=== PATIENT | male | born 1940 | race African-American/Black ===

== ENCOUNTER 2021-11-25 12:12 | Inpatient (IN) | payer MEDICARE, OTHER ==
[~2021-11-25] VITALS: Ht 182.9 cm; Wt 86.2 kg
[2021-11-25] MEDS ORDERED: SODIUM CHLORIDE 0.9% 1,000 ML IV ONE (12:45)
[2021-11-25 13:04] LABS: HEMATOCRIT. 34.5 % (42.0-52.0); HEMOGLOBIN. 11.8 g/dL (14.0-18.0); MEAN CORPUSCULAR HEMOGLOBIN 30.5 pg (28.0-32.0); MEAN CORPUSCULAR VOLUME 89.5 fL (80.0-94.0); MEAN PLATELET VOLUME 9.3 fl (7.4-10.4); PLATELET 115 x1000/uL (130-400); RED BLOOD CELL COUNT 3.86 mill/uL (4.7-6.1); RED CELL DISTRIBUTION WIDTH 16.3 % (11.6-14.6)
[2021-11-25 13:13] LABS: CHLORIDE 107 mEq/L (98-107)
[2021-11-25 13:34] LABS: PLATELET ESTIMATE SLIGHTLY DECREASED
[2021-11-25] MEDS ORDERED: ACETAMINOPHEN 325MG TABLET PO PRN ×2 (15:15)
[2021-11-25] MEDS ORDERED: POTASSIUM CHLORIDE INJ 40 MEQ in DEXT 5% WATER 250 ML IV ONE (15:15)
[2021-11-25] MEDS ORDERED: MAGNESIUM/ALUMINUM HYDROXIDE/SIMETHICONE 30ML UDC PO PRN (15:15)
[2021-11-25] MEDS ORDERED: HYDROCODONE/ACETAMINOPHEN 5/325MG TABLET PO PRN (15:15)
[2021-11-25] MEDS ORDERED: ONDANSETRON HCL 4MG/2ML INJ IV PRN (15:15)
[2021-11-25] MEDS ORDERED: CLONIDINE 0.1MG TABLET PO PRN (15:15)
[2021-11-25] MEDS ORDERED: NALOXONE HCL 0.4MG/ML VIAL IV PRN (15:45)
[2021-11-25 15:54] LABS: CREATINE KINASE 245 IU/L (39-308)
[2021-11-25] MEDS ORDERED: KCL 20MEQ/100ML X 2 FOR TOTAL KCL 40MEQ/200ML IV SCH (16:00)
[2021-11-25 16:26] LABS: CLARITY URINE TURBID (CLEAR); COLOR URINE BROWN (YELLOW); SPECIFIC GRAVITY URINE 1.021 (1.005-1.030)
[2021-11-25 17:17] VITALS: BP 147/78
[2021-11-25 19:32] LABS: INR 1.3; PROTHROMBIN TIME 13.5 sec (9.6-11.0)
[2021-11-25 20:00] VITALS: BP 135/74
[2021-11-25] MEDS: ENOXAPARIN 40MG/0.4ML SYR SUBCUT SCH (22:08)
[2021-11-25 22:22] VITALS: BP_SYST 103; BP_SYST 111; BP_SYST 140; BP_DIAS 61; BP_DIAS 65; BP_DIAS 90
[2021-11-25] MEDS: KCL 20MEQ/100ML X 2 FOR TOTAL KCL 40MEQ/200ML IV SCH (23:11)
[2021-11-26] VITALS: BP 138/69
[2021-11-26] MEDS ORDERED: HYDROXYZINE 25MG TABLET PO PRN (00:30)
[2021-11-26] MEDS: KCL 20MEQ/100ML X 2 FOR TOTAL KCL 40MEQ/200ML IV SCH (00:32)
[2021-11-26 04:00] VITALS: BP 139/72
[2021-11-26 06:22] LABS: HEMATOCRIT. 32.5 % (42.0-52.0); HEMOGLOBIN. 11.4 g/dL (14.0-18.0); MEAN CORPUSCULAR HEMOGLOBIN 31.1 pg (28.0-32.0); MEAN CORPUSCULAR VOLUME 89.1 fL (80.0-94.0); MEAN PLATELET VOLUME 10.4 fl (7.4-10.4); PLATELET 113 x1000/uL (130-400); RED BLOOD CELL COUNT 3.65 mill/uL (4.7-6.1); RED CELL DISTRIBUTION WIDTH 16.1 % (11.6-14.6)
[2021-11-26 07:00] LABS: HEPATITIS B SURFACE ANTIGEN NEGATIVE
[2021-11-26 07:05] LABS: CHLORIDE 111 mEq/L (98-107)
[2021-11-26 07:26] LABS: FERRITIN 3261 ng/mL (22-322)
[2021-11-26 07:27] LABS: HDL CHOLESTEROL 11 mg/dL (40-59); LDL CHOLESTEROL 358 mg/dL (5-100); PHOSPHORUS 1.8 mg/dL (2.5-4.9); T4 FREE 0.97 ng/dL (0.76-1.46); TOTAL IRON BINDING CAPACITY 224 ug/dL (250-450)
[2021-11-26 08:00] VITALS: BP 123/74
[2021-11-26 12:00] VITALS: BP 150/76
[2021-11-26 13:03] LABS: NUCLEATED RED BLOOD CELLS 1 /100 WBC
[2021-11-26 13:04] LABS: PLATELET ESTIMATE DECREASED
[2021-11-26 16:00] VITALS: BP 127/81
[2021-11-26] MEDS: ENOXAPARIN 40MG/0.4ML SYR SUBCUT SCH (16:29)
[2021-11-26 17:13] LABS: VITAMIN B12 SERUM 1072 pg/mL (211-911)
[2021-11-26 20:00] VITALS: BP 136/73
[2021-11-27 04:00] VITALS: BP 117/76
[2021-11-27 08:00] VITALS: BP 130/53
[2021-11-27] MEDS: FOLIC ACID 1MG TABLET PO SCH (08:40)
[2021-11-27 12:00] VITALS: BP 100/60
[2021-11-27 16:00] VITALS: BP 109/62
[2021-11-27] MEDS: ENOXAPARIN 40MG/0.4ML SYR SUBCUT SCH (16:08)
[2021-11-27] MEDS: DEXTROSE 5% WATER 1,000 ML IV SCH (16:21)
[2021-11-27 17:48] LABS: CLARITY URINE CLOUDY (CLEAR); COLOR URINE DARK YELLOW (YELLOW); KETONES URINE NEGATIVE (NEGATIVE); LEUKOCYTE ESTERASE URINE 1+ (NEGATIVE); NITRITE URINE POSITIVE (NEGATIVE); OCCULT BLOOD URINE 3+ (NEGATIVE); PH URINE 5.5 (4.5-8.0); PROTEIN URINE 1+ (NEGATIVE); SPECIFIC GRAVITY URINE 1.021 (1.005-1.030)
[2021-11-27 20:00] VITALS: BP 100/50
[2021-11-28 00:30] VITALS: BP 106/71
[2021-11-28 04:00] VITALS: BP 103/80
[2021-11-28 06:30] LABS: HEMATOCRIT. 34.3 % (42.0-52.0); HEMOGLOBIN. 12.1 g/dL (14.0-18.0); MEAN CORPUSCULAR HEMOGLOBIN 31.2 pg (28.0-32.0); MEAN CORPUSCULAR VOLUME 88.7 fL (80.0-94.0); MEAN PLATELET VOLUME 10.2 fl (7.4-10.4); PLATELET 83 x1000/uL (130-400); RED BLOOD CELL COUNT 3.87 mill/uL (4.7-6.1); RED CELL DISTRIBUTION WIDTH 16.6 % (11.6-14.6)
[2021-11-28 07:19] LABS: PHOSPHORUS 2.8 mg/dL (2.5-4.9)
[2021-11-28 08:00] VITALS: BP 93/54
[2021-11-28] MEDS: FOLIC ACID 1MG TABLET PO SCH (08:00)
[2021-11-28] MEDS ORDERED: CEFTRIAXONE 1 G PREMIX 50 ML IV SCH (09:45)
[2021-11-28] MEDS ORDERED: CEFTRIAXONE 1,000 MG in DEXTROSE 5% WATER 50 ML IV SCH (11:00)
[2021-11-28] MEDS ORDERED: SODIUM CHLORIDE 0.45% 250 ML IV SCH (11:00)
[2021-11-28] MEDS: CEFEPIME 1,000 MG in DEXTROSE 5% WATER 50 ML IV SCH ×2 (11:31→22:23)
[2021-11-28 12:00] VITALS: BP 91/56
[2021-11-28] MEDS: METRONIDAZOLE 500 MG PREMIX 100 ML IV SCH ×2 (12:16→23:44)
[2021-11-28 13:14] LABS: PLATELET ESTIMATE DECREASED
[2021-11-28 16:00] VITALS: BP 92/42
[2021-11-28] MEDS: DEXTROSE 5% WATER 1,000 ML IV SCH (16:01)
[2021-11-28] MEDS ORDERED: VANCOMYCIN 1,750 MG in DEXT 5% WATER 500 ML IV NR (18:00)
[2021-11-28 20:00] VITALS: BP 78/42
[2021-11-28] MEDS ORDERED: SODIUM CHLORIDE 0.45% 250 ML IV ONE (20:15)
[2021-11-28] MEDS: MIDODRINE HCL 5MG TABLET PO SCH (21:27)
[2021-11-29] VITALS (87 sets, daily range): BP systolic 61–152; BP diastolic 38–142
[2021-11-29] MEDS ORDERED: PHENYLEPHRINE 100 MG in DEXT 5% WATER 240 ML IV PRN (01:00)
[2021-11-29] MEDS: NOREPINEPHRINE 8 MG in DEXT 5% WATER 242 ML IV PRN ×2 (02:30→16:52)
[2021-11-29] MEDS: CEFEPIME 1,000 MG in DEXTROSE 5% WATER 50 ML IV SCH ×3 (06:29→21:26)
[2021-11-29] MEDS: METRONIDAZOLE 500 MG PREMIX 100 ML IV SCH ×3 (06:30→21:26)
[2021-11-29] MEDS: MIDODRINE HCL 5MG TABLET PO SCH ×3 (06:33→21:27)
[2021-11-29] MEDS ORDERED: LIDOCAINE HCL/PF 1% 10 MG/ML 5ML VIAL ONE (08:18)
[2021-11-29 08:22] LABS: HEMATOCRIT. 33.9 % (42.0-52.0); HEMOGLOBIN. 11.3 g/dL (14.0-18.0); MEAN CORPUSCULAR HEMOGLOBIN 30.1 pg (28.0-32.0); MEAN CORPUSCULAR VOLUME 90.6 fL (80.0-94.0); RED BLOOD CELL COUNT 3.74 mill/uL (4.7-6.1)
[2021-11-29 08:27] LABS: PHOSPHORUS 3.6 mg/dL (2.5-4.9)
[2021-11-29] MEDS: THIAMINE HCL 100MG TABLET PO SCH (08:46)
[2021-11-29] MEDS: FOLIC ACID 1MG TABLET PO SCH (08:46)
[2021-11-29] MEDS ORDERED: ENOXAPARIN 30MG/0.3ML SYR SUBCUT SCH (09:00)
[2021-11-29 09:12] LABS: NUCLEATED RED BLOOD CELLS 4 /100 WBC
[2021-11-29 09:13] LABS: PLATELET ESTIMATE DECREASED
[2021-11-29 09:16] LABS: MEAN PLATELET VOLUME 11.1 fl (7.4-10.4); PLATELET 82 x1000/uL (130-400)
[2021-11-29] MEDS ORDERED: VANCOMYCIN 1.25GM PMX (XELLIA) 250 ML IV NR (10:30)
[2021-11-29] MEDS: DEXTROSE 5% WATER 1,000 ML IV SCH (14:39)
[2021-11-29] MEDS ORDERED: SODIUM BICARBONATE 8.4% 1 MEQ/ML 50ML SYR IV NR (17:15)
[2021-11-29 17:19] LABS: BG BASE EXCESS -6.6 mmol/L (-2.0-2.0); BG CARBOXYHEMOGLOBIN 0.3 % (0.5-1.5); BG DEOXYHEMOGLOBIN 10.2 % (0.0-5.0); BG HCO3 ACT 16.3 mmol/L (22.0-26.0); BG OXYGEN SATURATION 89.8 % (92.0-98.5); BG OXYHEMOGLOBIN 89.5 % (94.0-97.0); BG PCO2 25.2 mmHg (35.0-45.0); BG PH 7.428 (7.350-7.450); BG PO2 64.3 mmHg (75.0-100.0); BG SAMPLE SITE RIGHT BRACHIAL; BG TOTAL HEMOGLOBIN 11.5 g/dL (12.0-18.0); BG VENT MODE ROOM AIR
[2021-11-29] MEDS: SODIUM BICARBONATE 100 MEQ in DEXTROSE 5% WATER 1,000 ML IV SCH (18:09)
[2021-11-29] MEDS ORDERED: SODIUM CHLORIDE 0.45% 250 ML IV ONE (20:15)
[2021-11-29 21:26] LABS: CREATINE KINASE 131 IU/L (39-308)
[2021-11-30] VITALS (91 sets, daily range): BP systolic 83–145; BP diastolic 36–119
[2021-11-30] MEDS: NOREPINEPHRINE 8 MG in DEXT 5% WATER 242 ML IV PRN ×2 (02:00→12:55)
[2021-11-30] MEDS ORDERED: VANCOMYCIN 1.25GM PMX (XELLIA) 250 ML IV SCH (06:00)
[2021-11-30 06:25] LABS: CHLORIDE 105 mEq/L (98-107); PHOSPHORUS 3.1 mg/dL (2.5-4.9)
[2021-11-30] MEDS: CEFEPIME 1,000 MG in DEXTROSE 5% WATER 50 ML IV SCH ×3 (06:32→21:36)
[2021-11-30] MEDS: SODIUM BICARBONATE 100 MEQ in DEXTROSE 5% WATER 1,000 ML IV SCH ×3 (06:32→18:49)
[2021-11-30] MEDS: METRONIDAZOLE 500 MG PREMIX 100 ML IV SCH ×3 (06:32→21:36)
[2021-11-30] MEDS: MIDODRINE HCL 5MG TABLET PO SCH ×3 (06:32→21:36)
[2021-11-30 08:28] LABS: BG BASE EXCESS 2.6 mmol/L (-2.0-2.0); BG CARBOXYHEMOGLOBIN 0.2 % (0.5-1.5); BG DEOXYHEMOGLOBIN 7.9 % (0.0-5.0); BG FRACTION INSPIRED OXYGEN 21; BG HCO3 ACT 27.3 mmol/L (22.0-26.0); BG METHEMOGLOBIN 0.1 % (0.0-1.5); BG OXYGEN SATURATION 92.1 % (92.0-98.5); BG OXYHEMOGLOBIN 91.8 % (94.0-97.0); BG PCO2 42.4 mmHg (35.0-45.0); BG PH 7.426 (7.350-7.450); BG PO2 68.9 mmHg (75.0-100.0); BG SAMPLE SITE RIGHT RADIAL; BG TOTAL HEMOGLOBIN 9.5 g/dL (12.0-18.0); BG VENT MODE ROOM AIR
[2021-11-30] MEDS: FOLIC ACID 1MG TABLET PO SCH (08:41)
[2021-11-30] MEDS: THIAMINE HCL 100MG TABLET PO SCH (08:41)
[2021-11-30 09:35] LABS: BASOPHILS % 0.3 % (0.0-2.0); HEMATOCRIT. 28.3 % (42.0-52.0); HEMOGLOBIN. 9.7 g/dL (14.0-18.0); LYMPHOCYTES % 10.1 % (20.0-50.0); MEAN CORPUSCULAR HEMOGLOBIN 30.3 pg (28.0-32.0); MEAN CORPUSCULAR VOLUME 88.1 fL (80.0-94.0); MEAN PLATELET VOLUME 10.3 fl (7.4-10.4); MONOCYTES % 4.3 % (2.0-8.0); NEUTROPHILS % 85.3 % (40.0-76.0); RED BLOOD CELL COUNT 3.21 mill/uL (4.7-6.1); RED CELL DISTRIBUTION WIDTH 16.8 % (11.6-14.6)
[2021-11-30] MEDS ORDERED: PANTOPRAZOLE SODIUM 40 MG/VIAL IV NR (10:00)
[2021-11-30 11:54] LABS: PLATELET 43 x1000/uL (130-400); PLATELET ESTIMATE MARKEDLY DECREASED
[2021-11-30 12:19] LABS: HEMATOCRIT 26.4 % (42.0-52.0); HEMOGLOBIN 9.2 g/dL (14.0-18.0)
[2021-11-30] MEDS: PANTOPRAZOLE SODIUM 40 MG/VIAL IV SCH (17:54)
[2021-11-30 19:16] LABS: HEMATOCRIT 24.7 % (42.0-52.0); HEMOGLOBIN 8.6 g/dL (14.0-18.0)
[2021-12-01] VITALS (93 sets, daily range): BP systolic 80–130; BP diastolic 41–92
[2021-12-01 00:58] LABS: HEMATOCRIT 22.8 % (42.0-52.0); HEMOGLOBIN 7.9 g/dL (14.0-18.0)
[2021-12-01] MEDS: NOREPINEPHRINE 8 MG in DEXT 5% WATER 242 ML IV PRN (04:04)
[2021-12-01 05:41] LABS: BASOPHILS % 0.1 % (0.0-2.0); EOSINOPHILS % 0.2 % (0.0-5.0); HEMATOCRIT. 22.6 % (42.0-52.0); HEMOGLOBIN. 7.9 g/dL (14.0-18.0); LYMPHOCYTES % 24.6 % (20.0-50.0); MEAN CORPUSCULAR HEMOGLOBIN 30.5 pg (28.0-32.0); MEAN CORPUSCULAR VOLUME 86.7 fL (80.0-94.0); MEAN PLATELET VOLUME 10.1 fl (7.4-10.4); NEUTROPHILS % 67.1 % (40.0-76.0); RED CELL DISTRIBUTION WIDTH 16.5 % (11.6-14.6)
[2021-12-01] MEDS: PANTOPRAZOLE SODIUM 40 MG/VIAL IV SCH ×2 (06:15→17:59)
[2021-12-01] MEDS: METRONIDAZOLE 500 MG PREMIX 100 ML IV SCH ×3 (06:16→22:10)
[2021-12-01] MEDS: CEFEPIME 1,000 MG in DEXTROSE 5% WATER 50 ML IV SCH (06:16)
[2021-12-01] MEDS: MIDODRINE HCL 5MG TABLET PO SCH ×3 (06:16→22:10)
[2021-12-01 06:26] LABS: PHOSPHORUS 2.2 mg/dL (2.5-4.9)
[2021-12-01 07:08] LABS: PLATELET 24 x1000/uL (130-400)
[2021-12-01] MEDS: FOLIC ACID 1MG TABLET PO SCH (08:10)
[2021-12-01] MEDS: THIAMINE HCL 100MG TABLET PO SCH (08:11)
[2021-12-01] MEDS: SODIUM CHLORIDE 0.45% 1,000 ML IV SCH (10:59)
[2021-12-01] MEDS ORDERED: POTASSIUM PHOS,M-BASIC-D-BASIC 30 MMOL in DEXT 5% WATER 500 ML IV NR (12:00)
[2021-12-01 12:28] LABS: HEMATOCRIT 22.3 % (42.0-52.0); HEMOGLOBIN 7.7 g/dL (14.0-18.0)
[2021-12-02] VITALS (106 sets, daily range): BP systolic 34–134; BP diastolic 20–97
[2021-12-02] MEDS: SODIUM CHLORIDE 0.45% 1,000 ML IV SCH ×2 (00:03→12:18)
[2021-12-02 00:54] LABS: HEMATOCRIT 21.2 % (42.0-52.0); HEMOGLOBIN 7.3 g/dL (14.0-18.0)
[2021-12-02] MEDS: IPRATROPIUM/ALBUTEROL 0.5-3(2.5)MG/3ML NEB HHN SCH ×6 (02:17→23:44)
[2021-12-02] MEDS: PANTOPRAZOLE SODIUM 40 MG/VIAL IV SCH ×2 (05:11→17:24)
[2021-12-02] MEDS: MIDODRINE HCL 5MG TABLET PO SCH ×3 (05:11→21:26)
[2021-12-02] MEDS: METRONIDAZOLE 500 MG PREMIX 100 ML IV SCH ×2 (05:12→14:09)
[2021-12-02 05:48] LABS: HEMATOCRIT. 23.7 % (42.0-52.0); HEMOGLOBIN. 8.3 g/dL (14.0-18.0); MEAN CORPUSCULAR HEMOGLOBIN 30.4 pg (28.0-32.0); MEAN CORPUSCULAR VOLUME 86.9 fL (80.0-94.0); MEAN PLATELET VOLUME 10.2 fl (7.4-10.4); RED BLOOD CELL COUNT 2.72 mill/uL (4.7-6.1); RED CELL DISTRIBUTION WIDTH 16.3 % (11.6-14.6)
[2021-12-02 06:12] LABS: PLATELET 14 x1000/uL (130-400)
[2021-12-02 06:17] LABS: PHOSPHORUS 4.2 mg/dL (2.5-4.9)
[2021-12-02 06:57] LABS: NUCLEATED RED BLOOD CELLS 3 /100 WBC; PLATELET ESTIMATE MARKEDLY DECREASED
[2021-12-02] MEDS: THIAMINE HCL 100MG TABLET PO SCH (08:14)
[2021-12-02] MEDS: FOLIC ACID 1MG TABLET PO SCH (08:14)
[2021-12-02] MEDS ORDERED: POTASSIUM CHLORIDE INJ 40 MEQ in DEXT 5% WATER 500 ML IV ONE (08:30)
[2021-12-02] MEDS ORDERED: CEFEPIME 1,000 MG in DEXTROSE 5% WATER 50 ML IV SCH (09:00)
[2021-12-02] MEDS: KCL 20MEQ/100ML X 2 FOR TOTAL KCL 40MEQ/200ML IV SCH ×2 (09:39→12:15)
[2021-12-02] MEDS ORDERED: IPRATROPIUM/ALBUTEROL 0.5-3(2.5)MG/3ML NEB HHN PRN (11:15)
[2021-12-02 12:26] LABS: BG BASE EXCESS 1.8 mmol/L (-2.0-2.0); BG CARBOXYHEMOGLOBIN 0.3 % (0.5-1.5); BG DEOXYHEMOGLOBIN 7.4 % (0.0-5.0); BG FRACTION INSPIRED OXYGEN 21; BG OXYGEN SATURATION 92.6 % (92.0-98.5); BG OXYHEMOGLOBIN 92.3 % (94.0-97.0); BG PCO2 28.9 mmHg (35.0-45.0); BG PH 7.537 (7.350-7.450); BG PO2 63.9 mmHg (75.0-100.0); BG SAMPLE SITE RIGHT RADIAL; BG TOTAL HEMOGLOBIN 9.3 g/dL (12.0-18.0); BG VENT MODE ROOM AIR
[2021-12-02] MEDS: MEROPENEM 500 MG in SODIUM CHLORIDE 0.9% 50 ML IV SCH (17:24)
[2021-12-03] VITALS (90 sets, daily range): BP systolic 82–142; BP diastolic 44–88
[2021-12-03] MEDS: SODIUM CHLORIDE 0.45% 1,000 ML IV SCH ×2 (03:20→16:09)
[2021-12-03] MEDS: IPRATROPIUM/ALBUTEROL 0.5-3(2.5)MG/3ML NEB HHN SCH ×4 (04:02→21:56)
[2021-12-03] MEDS: PANTOPRAZOLE SODIUM 40 MG/VIAL IV SCH ×2 (05:52→16:16)
[2021-12-03] MEDS: MIDODRINE HCL 5MG TABLET PO SCH ×3 (05:52→21:49)
[2021-12-03 07:24] LABS: HEMOGLOBIN. 7.2 g/dL (14.0-18.0); MEAN CORPUSCULAR HEMOGLOBIN 30.3 pg (28.0-32.0); MEAN PLATELET VOLUME 8.4 fl (7.4-10.4); RED BLOOD CELL COUNT 2.39 mill/uL (4.7-6.1); RED CELL DISTRIBUTION WIDTH 16.8 % (11.6-14.6)
[2021-12-03 07:33] LABS: CHLORIDE 109 mEq/L (98-107)
[2021-12-03] MEDS: MEROPENEM 500 MG in SODIUM CHLORIDE 0.9% 50 ML IV SCH ×2 (08:00→20:45)
[2021-12-03] MEDS: FOLIC ACID 1MG TABLET PO SCH (08:00)
[2021-12-03] MEDS: THIAMINE HCL 100MG TABLET PO SCH (08:00)
[2021-12-03 08:05] LABS: HEMATOCRIT. 20.6 % (42.0-52.0); PLATELET 23 x1000/uL (130-400)
[2021-12-03 08:23] LABS: BG BASE EXCESS 2.1 mmol/L (-2.0-2.0); BG CARBOXYHEMOGLOBIN 0.5 % (0.5-1.5); BG DEOXYHEMOGLOBIN 1.1 % (0.0-5.0); BG FRACTION INSPIRED OXYGEN 32; BG HCO3 ACT 25.8 mmol/L (22.0-26.0); BG METHEMOGLOBIN 0.3 % (0.0-1.5); BG OXYGEN SATURATION 98.9 % (92.0-98.5); BG OXYHEMOGLOBIN 98.1 % (94.0-97.0); BG PCO2 35.8 mmHg (35.0-45.0); BG PH 7.476 (7.350-7.450); BG PO2 153.2 mmHg (75.0-100.0); BG SAMPLE SITE RIGHT RADIAL; BG VENT MODE NASAL CANNULA
[2021-12-03 08:44] LABS: NUCLEATED RED BLOOD CELLS 3 /100 WBC; PLATELET ESTIMATE MARKEDLY DECREASED
[2021-12-04] VITALS (100 sets, daily range): BP systolic 80–140; BP diastolic 11–95
[2021-12-04] MEDS: SODIUM CHLORIDE 0.45% 1,000 ML IV SCH ×3 (04:26→17:19)
[2021-12-04] MEDS: PANTOPRAZOLE SODIUM 40 MG/VIAL IV SCH ×2 (05:32→17:19)
[2021-12-04] MEDS: MIDODRINE HCL 5MG TABLET PO SCH ×3 (05:33→21:04)
[2021-12-04 05:39] LABS: BASOPHILS % 0.4 % (0.0-2.0); HEMOGLOBIN. 7.2 g/dL (14.0-18.0); LYMPHOCYTES % 9.5 % (20.0-50.0); MEAN CORPUSCULAR HEMOGLOBIN 29.9 pg (28.0-32.0); MEAN CORPUSCULAR VOLUME 86.6 fL (80.0-94.0); MEAN PLATELET VOLUME 9.3 fl (7.4-10.4); MONOCYTES % 6.7 % (2.0-8.0); NEUTROPHILS % 82.4 % (40.0-76.0); RED BLOOD CELL COUNT 2.42 mill/uL (4.7-6.1); RED CELL DISTRIBUTION WIDTH 16.5 % (11.6-14.6)
[2021-12-04 05:45] LABS: HEMATOCRIT. 20.9 % (42.0-52.0)
[2021-12-04 05:49] LABS: CHLORIDE 111 mEq/L (98-107)
[2021-12-04 05:52] LABS: PLATELET 21 x1000/uL (130-400)
[2021-12-04 05:54] LABS: CREATINE KINASE 88 IU/L (39-308); PHOSPHORUS 3.9 mg/dL (2.5-4.9)
[2021-12-04] MEDS: IPRATROPIUM/ALBUTEROL 0.5-3(2.5)MG/3ML NEB HHN SCH ×5 (06:00→20:47)
[2021-12-04 06:11] LABS: INR 1.9; PROTHROMBIN TIME 19.1 sec (9.6-11.0)
[2021-12-04] MEDS: FOLIC ACID 1MG TABLET PO SCH (08:07)
[2021-12-04] MEDS: THIAMINE HCL 100MG TABLET PO SCH (08:07)
[2021-12-04] MEDS: MEROPENEM 500 MG in SODIUM CHLORIDE 0.9% 50 ML IV SCH ×2 (08:07→21:03)
[2021-12-04] MEDS ORDERED: POTASSIUM CHLORIDE 20MEQ TABLET SR PO NR (11:00)
[2021-12-04 11:33] LABS: PARTIAL THROMBOPLASTIN TIME 54.1 sec (23.4-31.0)
[2021-12-04] MEDS ORDERED: MIDODRINE HCL 5MG TABLET PO SCH (12:00)
[2021-12-04 17:13] LABS: HEMATOCRIT 23.9 % (42.0-52.0); HEMOGLOBIN 8.3 g/dL (14.0-18.0)
[2021-12-04 17:24] LABS: INR 1.7; PROTHROMBIN TIME 17.3 sec (9.6-11.0)
[2021-12-05] VITALS (56 sets, daily range): BP systolic 96–158; BP diastolic 30–96
[2021-12-05] MEDS: IPRATROPIUM/ALBUTEROL 0.5-3(2.5)MG/3ML NEB HHN SCH ×6 (01:34→20:31)
[2021-12-05] MEDS: SODIUM CHLORIDE 0.45% 1,000 ML IV SCH ×2 (03:24→08:18)
[2021-12-05] MEDS: PANTOPRAZOLE SODIUM 40 MG/VIAL IV SCH ×2 (05:39→17:03)
[2021-12-05] MEDS: MIDODRINE HCL 5MG TABLET PO SCH ×3 (06:00→22:28)
[2021-12-05 06:45] LABS: BASOPHILS % 0.2 % (0.0-2.0); EOSINOPHILS % 0.9 % (0.0-5.0); HEMATOCRIT. 23.9 % (42.0-52.0); HEMOGLOBIN. 8.3 g/dL (14.0-18.0); LYMPHOCYTES % 14.1 % (20.0-50.0); MEAN CORPUSCULAR HEMOGLOBIN 30.3 pg (28.0-32.0); MEAN CORPUSCULAR VOLUME 87.1 fL (80.0-94.0); MEAN PLATELET VOLUME 9.5 fl (7.4-10.4); MONOCYTES % 11.7 % (2.0-8.0); NEUTROPHILS % 73.1 % (40.0-76.0); PLATELET 52 x1000/uL (130-400); RED BLOOD CELL COUNT 2.75 mill/uL (4.7-6.1); RED CELL DISTRIBUTION WIDTH 16.6 % (11.6-14.6)
[2021-12-05 06:56] LABS: INR 1.6; PARTIAL THROMBOPLASTIN TIME 41.4 sec (23.4-31.0); PROTHROMBIN TIME 16.1 sec (9.6-11.0)
[2021-12-05 07:01] LABS: CHLORIDE 113 mEq/L (98-107)
[2021-12-05 07:10] LABS: PHOSPHORUS 3.5 mg/dL (2.5-4.9)
[2021-12-05] MEDS: MEROPENEM 500 MG in SODIUM CHLORIDE 0.9% 50 ML IV SCH ×2 (08:18→21:38)
[2021-12-05] MEDS ORDERED: MIDODRINE HCL 5MG TABLET PO NR (10:15)
[2021-12-05] MEDS ORDERED: IOHEXOL-300 50 ML BOTTLE IV ONE (10:38)
[2021-12-05] MEDS ORDERED: LIDOCAINE HCL 1% 10 MG/ML 10ML VIAL ONE (10:38)
[2021-12-05] MEDS ORDERED: KCL 20MEQ/100ML PREMIX 100 ML IV NR (14:30)
[2021-12-05] MEDS: POTASSIUM CHLORIDE INJ 30 MEQ in DEXT 5%/0.2% NACL 1,000 ML IV SCH (15:31)
[2021-12-06] VITALS (14 sets, daily range): BP systolic 100–130; BP diastolic 53–87
[2021-12-06] MEDS ORDERED: KCL 20MEQ/100ML PREMIX 100 ML IV NR (00:15)
[2021-12-06] MEDS: POTASSIUM CHLORIDE INJ 30 MEQ in DEXT 5%/0.2% NACL 1,000 ML IV SCH ×3 (00:18→18:10)
[2021-12-06] MEDS: METOCLOPRAMIDE HCL 10MG/2ML VIAL IV SCH ×4 (00:20→18:00)
[2021-12-06] MEDS: IPRATROPIUM/ALBUTEROL 0.5-3(2.5)MG/3ML NEB HHN SCH ×6 (00:39→21:22)
[2021-12-06] MEDS: PANTOPRAZOLE SODIUM 40 MG/VIAL IV SCH ×2 (06:33→18:10)
[2021-12-06] MEDS: MIDODRINE HCL 5MG TABLET PO SCH ×3 (06:34→21:58)
[2021-12-06 07:29] LABS: HEMOGLOBIN. 8.3 g/dL (14.0-18.0); MEAN CORPUSCULAR HEMOGLOBIN 30.5 pg (28.0-32.0); MEAN CORPUSCULAR VOLUME 87.6 fL (80.0-94.0); MEAN PLATELET VOLUME 10.2 fl (7.4-10.4); RED BLOOD CELL COUNT 2.73 mill/uL (4.7-6.1); RED CELL DISTRIBUTION WIDTH 17.1 % (11.6-14.6)
[2021-12-06 07:36] LABS: INR 1.4; PARTIAL THROMBOPLASTIN TIME 38.2 sec (23.4-31.0); PROTHROMBIN TIME 15.1 sec (9.6-11.0)
[2021-12-06 07:52] LABS: CHLORIDE 113 mEq/L (98-107)
[2021-12-06 08:04] LABS: PHOSPHORUS 2.9 mg/dL (2.5-4.9)
[2021-12-06] MEDS: MEROPENEM 500 MG in SODIUM CHLORIDE 0.9% 50 ML IV SCH ×2 (09:30→21:17)
[2021-12-06 10:47] LABS: NUCLEATED RED BLOOD CELLS 1 /100 WBC; PLATELET ESTIMATE MARKEDLY DECREASED
[2021-12-06 10:49] LABS: PLATELET 46 x1000/uL (130-400)
[2021-12-06 15:58] LABS: BG BASE EXCESS -1.5 mmol/L (-2.0-2.0); BG CARBOXYHEMOGLOBIN 0.3 % (0.5-1.5); BG DEOXYHEMOGLOBIN 12.9 % (0.0-5.0); BG HCO3 ACT 21.5 mmol/L (22.0-26.0); BG METHEMOGLOBIN 0.3 % (0.0-1.5); BG OXYHEMOGLOBIN 86.5 % (94.0-97.0); BG PCO2 30.3 mmHg (35.0-45.0); BG PH 7.469 (7.350-7.450); BG PO2 53.1 mmHg (75.0-100.0); BG SAMPLE SITE RIGHT RADIAL; BG TOTAL HEMOGLOBIN 10.5 g/dL (12.0-18.0); BG VENT MODE NASAL CANNULA
[2021-12-07] VITALS (21 sets, daily range): BP systolic 97–149; BP diastolic 47–83
[2021-12-07] MEDS: METOCLOPRAMIDE HCL 10MG/2ML VIAL IV SCH ×4 (00:08→18:18)
[2021-12-07] MEDS: POTASSIUM CHLORIDE INJ 30 MEQ in DEXT 5%/0.2% NACL 1,000 ML IV SCH ×3 (00:09→15:48)
[2021-12-07] MEDS: IPRATROPIUM/ALBUTEROL 0.5-3(2.5)MG/3ML NEB HHN SCH ×5 (00:30→20:25)
[2021-12-07] MEDS: PANTOPRAZOLE SODIUM 40 MG/VIAL IV SCH ×2 (05:35→18:19)
[2021-12-07] MEDS: MIDODRINE HCL 5MG TABLET PO SCH ×3 (05:36→22:26)
[2021-12-07 06:11] LABS: HEMATOCRIT. 24.8 % (42.0-52.0); HEMOGLOBIN. 8.5 g/dL (14.0-18.0); MEAN CORPUSCULAR HEMOGLOBIN 30.3 pg (28.0-32.0); MEAN CORPUSCULAR VOLUME 88.9 fL (80.0-94.0); MEAN PLATELET VOLUME 10.8 fl (7.4-10.4); RED BLOOD CELL COUNT 2.79 mill/uL (4.7-6.1); RED CELL DISTRIBUTION WIDTH 17.4 % (11.6-14.6)
[2021-12-07 08:05] LABS: PLATELET 43 x1000/uL (130-400)
[2021-12-07 09:00] LABS: BG CARBOXYHEMOGLOBIN 0.3 % (0.5-1.5); BG DEOXYHEMOGLOBIN 5.7 % (0.0-5.0); BG FRACTION INSPIRED OXYGEN 24; BG HCO3 ACT 22.3 mmol/L (22.0-26.0); BG METHEMOGLOBIN 0.2 % (0.0-1.5); BG OXYGEN SATURATION 94.3 % (92.0-98.5); BG OXYHEMOGLOBIN 93.8 % (94.0-97.0); BG PO2 74.2 mmHg (75.0-100.0); BG SAMPLE SITE RIGHT RADIAL; BG TOTAL HEMOGLOBIN 8.8 g/dL (12.0-18.0); BG VENT MODE NASAL CANNULA
[2021-12-07 09:05] LABS: ATYPICAL LYMPHOCYTES 1; NUCLEATED RED BLOOD CELLS 4 /100 WBC; PLATELET ESTIMATE MARKEDLY DECREASED
[2021-12-07] MEDS: MEROPENEM 500 MG in SODIUM CHLORIDE 0.9% 50 ML IV SCH (09:33)
[2021-12-07 09:39] LABS: INR 1.4; PROTHROMBIN TIME 14.4 sec (9.6-11.0)
[2021-12-07] MEDS: MEROPENEM 1000MG in NORMAL SALINE 100ML IV SCH (18:17)
[2021-12-08] VITALS (11 sets, daily range): BP systolic 103–141; BP diastolic 59–81
[2021-12-08] MEDS: IPRATROPIUM/ALBUTEROL 0.5-3(2.5)MG/3ML NEB HHN SCH ×5 (00:03→19:43)
[2021-12-08] MEDS: POTASSIUM CHLORIDE INJ 30 MEQ in DEXT 5%/0.2% NACL 1,000 ML IV SCH ×2 (00:37→14:00)
[2021-12-08] MEDS: METOCLOPRAMIDE HCL 10MG/2ML VIAL IV SCH ×4 (00:37→17:36)
[2021-12-08] MEDS: MIDODRINE HCL 5MG TABLET PO SCH ×3 (04:56→21:21)
[2021-12-08] MEDS: MEROPENEM 1000MG in NORMAL SALINE 100ML IV SCH ×2 (05:12→17:36)
[2021-12-08] MEDS: PANTOPRAZOLE SODIUM 40 MG/VIAL IV SCH ×2 (05:12→17:36)
[2021-12-08 05:34] LABS: HEMATOCRIT. 23.3 % (42.0-52.0); MEAN CORPUSCULAR HEMOGLOBIN 30.2 pg (28.0-32.0); MEAN CORPUSCULAR VOLUME 88.1 fL (80.0-94.0); MEAN PLATELET VOLUME 9.5 fl (7.4-10.4); PLATELET 77 x1000/uL (130-400); RED BLOOD CELL COUNT 2.65 mill/uL (4.7-6.1); RED CELL DISTRIBUTION WIDTH 17.1 % (11.6-14.6)
[2021-12-08 05:53] LABS: INR 1.4; PARTIAL THROMBOPLASTIN TIME 34.8 sec (23.4-31.0); PROTHROMBIN TIME 14.3 sec (9.6-11.0)
[2021-12-08 06:00] LABS: CHLORIDE 115 mEq/L (98-107)
[2021-12-08 06:07] LABS: PHOSPHORUS 3.2 mg/dL (2.5-4.9)
[2021-12-08] MEDS ORDERED: IOHEXOL-300 50 ML BOTTLE IV ONE (08:57)
[2021-12-08] MEDS ORDERED: LIDOCAINE HCL 1% 20ML VIAL (Pyxis) INJ ONE (08:57)
[2021-12-08] MEDS: SENNOSIDES/DOCUSATE SOD 8.6/50MG TABLET PO SCH ×2 (09:00→17:36)
[2021-12-08] MEDS ORDERED: MAGNESIUM HYDROXIDE 400MG/5ML 30ML UDC PO PRN (09:00)
[2021-12-08] MEDS ORDERED: POLYETHYLENE GLYCOL 3350 (17GM) 1 DOSE PACK PO PRN (09:15)
[2021-12-08] MEDS ORDERED: LIDOCAINE HCL/PF 1% 10 MG/ML 5ML VIAL ONE (10:14)
[2021-12-08] MEDS ORDERED: ONDANSETRON HCL 4MG/2ML INJ ONE (10:26)
[2021-12-08] MEDS ORDERED: DEXAMETHASONE 4MG/ML 1ML VIAL ONE (10:26)
[2021-12-08 13:48] LABS: NUCLEATED RED BLOOD CELLS 1 /100 WBC
[2021-12-08 13:49] LABS: PLATELET ESTIMATE DECREASED
[2021-12-09] VITALS (13 sets, daily range): BP systolic 109–131; BP diastolic 51–84
[2021-12-09] MEDS: IPRATROPIUM/ALBUTEROL 0.5-3(2.5)MG/3ML NEB HHN SCH ×6 (00:23→20:24)
[2021-12-09] MEDS: METOCLOPRAMIDE HCL 10MG/2ML VIAL IV SCH ×4 (00:38→19:03)
[2021-12-09] MEDS: POTASSIUM CHLORIDE INJ 30 MEQ in DEXT 5%/0.2% NACL 1,000 ML IV SCH ×2 (00:38→10:38)
[2021-12-09] MEDS: MIDODRINE HCL 5MG TABLET PO SCH ×3 (05:27→22:37)
[2021-12-09] MEDS: PANTOPRAZOLE SODIUM 40 MG/VIAL IV SCH ×2 (05:28→19:04)
[2021-12-09] MEDS: MEROPENEM 1000MG in NORMAL SALINE 100ML IV SCH ×2 (05:28→19:01)
[2021-12-09 08:17] LABS: HEMATOCRIT. 22.9 % (42.0-52.0); HEMOGLOBIN. 7.7 g/dL (14.0-18.0); MEAN CORPUSCULAR HEMOGLOBIN 30.6 pg (28.0-32.0); MEAN CORPUSCULAR VOLUME 90.6 fL (80.0-94.0); PLATELET 64 x1000/uL (130-400); RED BLOOD CELL COUNT 2.53 mill/uL (4.7-6.1)
[2021-12-09 08:39] LABS: PHOSPHORUS 4.7 mg/dL (2.5-4.9)
[2021-12-09 09:18] LABS: PLATELET ESTIMATE DECREASED
[2021-12-09] MEDS: SENNOSIDES/DOCUSATE SOD 8.6/50MG TABLET PO SCH ×2 (10:38→19:03)
[2021-12-09] MEDS: DEXT 5%/0.2% NACL 1,000 ML IV SCH ×2 (14:03→21:31)
[2021-12-09 17:51] LABS: CLARITY URINE TURBID (CLEAR); COLOR URINE DARK YELLOW (YELLOW); KETONES URINE NEGATIVE (NEGATIVE); LEUKOCYTE ESTERASE URINE 1+ (NEGATIVE); NITRITE URINE NEGATIVE (NEGATIVE); OCCULT BLOOD URINE 2+ (NEGATIVE); PROTEIN URINE 1+ (NEGATIVE); SPECIFIC GRAVITY URINE 1.012 (1.005-1.030); UROBILINOGEN URINE 0.2 E.U./dL (0.2-1.0)
[2021-12-09] MEDS: ACETYLCYSTEINE 100MG/ML 10% VIAL 4ML INH SCH (22:00)
[2021-12-10] VITALS (14 sets, daily range): BP systolic 98–132; BP diastolic 52–81
[2021-12-10] MEDS: IPRATROPIUM/ALBUTEROL 0.5-3(2.5)MG/3ML NEB HHN SCH ×7 (00:19→23:59)
[2021-12-10] MEDS: METOCLOPRAMIDE HCL 10MG/2ML VIAL IV SCH ×4 (00:32→18:32)
[2021-12-10] MEDS: DEXT 5%/0.2% NACL 1,000 ML IV SCH ×5 (02:30→18:30)
[2021-12-10] MEDS: PANTOPRAZOLE SODIUM 40 MG/VIAL IV SCH ×2 (04:52→18:34)
[2021-12-10] MEDS: MEROPENEM 1000MG in NORMAL SALINE 100ML IV SCH ×2 (05:56→18:33)
[2021-12-10] MEDS: MIDODRINE HCL 5MG TABLET PO SCH ×3 (07:45→21:56)
[2021-12-10 08:17] LABS: HEMATOCRIT. 23.9 % (42.0-52.0); HEMOGLOBIN. 7.8 g/dL (14.0-18.0); MEAN CORPUSCULAR HEMOGLOBIN 29.5 pg (28.0-32.0); MEAN CORPUSCULAR VOLUME 90.9 fL (80.0-94.0); MEAN PLATELET VOLUME 10.9 fl (7.4-10.4); PLATELET 57 x1000/uL (130-400); RED BLOOD CELL COUNT 2.63 mill/uL (4.7-6.1); RED CELL DISTRIBUTION WIDTH 18.1 % (11.6-14.6)
[2021-12-10 08:37] LABS: CHLORIDE 114 mEq/L (98-107)
[2021-12-10 08:46] LABS: PHOSPHORUS 4.3 mg/dL (2.5-4.9)
[2021-12-10] MEDS: SENNOSIDES/DOCUSATE SOD 8.6/50MG TABLET PO SCH ×2 (09:12→18:32)
[2021-12-10] MEDS: ACETYLCYSTEINE 100MG/ML 10% VIAL 4ML INH SCH ×3 (09:26→23:59)
[2021-12-10 09:34] LABS: NUCLEATED RED BLOOD CELLS 2 /100 WBC
[2021-12-10 09:35] LABS: PLATELET ESTIMATE DECREASED
[2021-12-11] VITALS (12 sets, daily range): BP systolic 96–110; BP diastolic 46–65
[2021-12-11] MEDS: METOCLOPRAMIDE HCL 10MG/2ML VIAL IV SCH ×4 (00:04→17:55)
[2021-12-11] MEDS: DEXT 5%/0.2% NACL 1,000 ML IV SCH ×3 (01:46→22:01)
[2021-12-11] MEDS: IPRATROPIUM/ALBUTEROL 0.5-3(2.5)MG/3ML NEB HHN SCH ×5 (03:53→20:15)
[2021-12-11] MEDS: PANTOPRAZOLE SODIUM 40 MG/VIAL IV SCH ×2 (05:40→17:55)
[2021-12-11] MEDS: MEROPENEM 1000MG in NORMAL SALINE 100ML IV SCH ×2 (05:41→17:55)
[2021-12-11] MEDS: MIDODRINE HCL 5MG TABLET PO SCH ×3 (05:42→22:05)
[2021-12-11 06:20] LABS: HEMATOCRIT. 24.5 % (42.0-52.0); HEMOGLOBIN. 7.8 g/dL (14.0-18.0); MEAN CORPUSCULAR HEMOGLOBIN 29.4 pg (28.0-32.0); MEAN PLATELET VOLUME 11.5 fl (7.4-10.4); RED BLOOD CELL COUNT 2.67 mill/uL (4.7-6.1); RED CELL DISTRIBUTION WIDTH 18.3 % (11.6-14.6)
[2021-12-11] MEDS: ACETYLCYSTEINE 100MG/ML 10% VIAL 4ML INH SCH ×2 (07:38→16:11)
[2021-12-11] MEDS: SENNOSIDES/DOCUSATE SOD 8.6/50MG TABLET PO SCH ×2 (08:46→17:55)
[2021-12-11 11:10] LABS: PLATELET 45 x1000/uL (130-400); PLATELET ESTIMATE MARKEDLY DECREASED
[2021-12-11] MEDS: FLUCONAZOLE 100MG TABLET PO SCH (12:12)
[2021-12-12] VITALS (12 sets, daily range): BP systolic 97–126; BP diastolic 54–95
[2021-12-12] MEDS: METOCLOPRAMIDE HCL 10MG/2ML VIAL IV SCH ×4 (00:36→17:27)
[2021-12-12] MEDS: ACETYLCYSTEINE 100MG/ML 10% VIAL 4ML INH SCH ×3 (01:55→16:53)
[2021-12-12] MEDS: IPRATROPIUM/ALBUTEROL 0.5-3(2.5)MG/3ML NEB HHN SCH ×5 (01:55→20:29)
[2021-12-12] MEDS: PANTOPRAZOLE SODIUM 40 MG/VIAL IV SCH (04:47)
[2021-12-12] MEDS: MEROPENEM 1000MG in NORMAL SALINE 100ML IV SCH ×2 (05:02→17:27)
[2021-12-12] MEDS: MIDODRINE HCL 5MG TABLET PO SCH ×3 (05:03→20:42)
[2021-12-12 06:26] LABS: HEMATOCRIT. 23.8 % (42.0-52.0); HEMOGLOBIN. 7.8 g/dL (14.0-18.0); MEAN CORPUSCULAR HEMOGLOBIN 29.3 pg (28.0-32.0); MEAN CORPUSCULAR VOLUME 89.5 fL (80.0-94.0); MEAN PLATELET VOLUME 12.3 fl (7.4-10.4); RED BLOOD CELL COUNT 2.66 mill/uL (4.7-6.1); RED CELL DISTRIBUTION WIDTH 17.7 % (11.6-14.6)
[2021-12-12 06:34] LABS: PLATELET 41 x1000/uL (130-400)
[2021-12-12] MEDS: SENNOSIDES/DOCUSATE SOD 8.6/50MG TABLET PO SCH ×2 (08:30→17:27)
[2021-12-12] MEDS: FLUCONAZOLE 100MG TABLET PO SCH (08:30)
[2021-12-12 08:46] LABS: BG BASE EXCESS -3.3 mmol/L (-2.0-2.0); BG CARBOXYHEMOGLOBIN 0.2 % (0.5-1.5); BG DEOXYHEMOGLOBIN 8.9 % (0.0-5.0); BG FRACTION INSPIRED OXYGEN 21; BG HCO3 ACT 20.3 mmol/L (22.0-26.0); BG METHEMOGLOBIN 0.8 % (0.0-1.5); BG OXYHEMOGLOBIN 90.1 % (94.0-97.0); BG PCO2 30.1 mmHg (35.0-45.0); BG PH 7.446 (7.350-7.450); BG PO2 59.1 mmHg (75.0-100.0); BG SAMPLE SITE RIGHT RADIAL; BG TOTAL HEMOGLOBIN 7.6 g/dL (12.0-18.0); BG VENT MODE ROOM AIR
[2021-12-12] MEDS ORDERED: MAGNESIUM 2 G PREMIX 50 ML IV SCH (10:00)
[2021-12-12] MEDS: DEXT 5%/0.2% NACL 1,000 ML IV SCH (11:07)
[2021-12-12] MEDS ORDERED: PANTOPRAZOLE SODIUM 40 MG/VIAL IV SCH (21:00)
[2021-12-12 21:14] LABS: PLATELET ESTIMATE MARKEDLY DECREASED
[2021-12-13] VITALS (12 sets, daily range): BP systolic 99–129; BP diastolic 44–71
[2021-12-13] MEDS: DEXT 5%/0.2% NACL 1,000 ML IV SCH ×2 (00:16→13:36)
[2021-12-13] MEDS: METOCLOPRAMIDE HCL 10MG/2ML VIAL IV SCH ×4 (00:27→18:06)
[2021-12-13] MEDS: IPRATROPIUM/ALBUTEROL 0.5-3(2.5)MG/3ML NEB HHN SCH ×6 (00:45→21:19)
[2021-12-13] MEDS: ACETYLCYSTEINE 100MG/ML 10% VIAL 4ML INH SCH ×4 (00:48→15:39)
[2021-12-13 03:06] LABS: HEMATOCRIT. 23.8 % (42.0-52.0); HEMOGLOBIN. 7.8 g/dL (14.0-18.0); MEAN CORPUSCULAR HEMOGLOBIN 29.4 pg (28.0-32.0); MEAN CORPUSCULAR VOLUME 89.8 fL (80.0-94.0); MEAN PLATELET VOLUME 11.6 fl (7.4-10.4); RED BLOOD CELL COUNT 2.65 mill/uL (4.7-6.1); RED CELL DISTRIBUTION WIDTH 17.6 % (11.6-14.6)
[2021-12-13 03:18] LABS: CHLORIDE 113 mEq/L (98-107)
[2021-12-13 03:21] LABS: INR 1.5; PLATELET 41 x1000/uL (130-400); PROTHROMBIN TIME 15.2 sec (9.6-11.0)
[2021-12-13] MEDS: MEROPENEM 1000MG in NORMAL SALINE 100ML IV SCH ×2 (06:17→18:11)
[2021-12-13] MEDS: MIDODRINE HCL 5MG TABLET PO SCH ×3 (06:31→21:49)
[2021-12-13] MEDS: SENNOSIDES/DOCUSATE SOD 8.6/50MG TABLET PO SCH ×2 (09:15→18:06)
[2021-12-13] MEDS: FLUCONAZOLE 100MG TABLET PO SCH (09:15)
[2021-12-13 10:10] LABS: *CREATININE RANDOM URINE 36.1 mg/dL (Not Estab.)
[2021-12-13] MEDS: PHYTONADIONE 10MG/ML AMP SUBCUT SCH (12:14)
[2021-12-13 13:52] LABS: NUCLEATED RED BLOOD CELLS 1 /100 WBC; PLATELET ESTIMATE MARKEDLY DECREASED
[2021-12-14] VITALS (25 sets, daily range): BP systolic 102–139; BP diastolic 54–78
[2021-12-14] MEDS: METOCLOPRAMIDE HCL 10MG/2ML VIAL IV SCH ×4 (00:12→17:45)
[2021-12-14] MEDS: IPRATROPIUM/ALBUTEROL 0.5-3(2.5)MG/3ML NEB HHN SCH ×6 (02:05→23:58)
[2021-12-14] MEDS: DEXT 5%/0.2% NACL 1,000 ML IV SCH ×2 (02:56→11:17)
[2021-12-14] MEDS: MEROPENEM 1000MG in NORMAL SALINE 100ML IV SCH (06:01)
[2021-12-14] MEDS: MIDODRINE HCL 5MG TABLET PO SCH ×3 (06:02→21:15)
[2021-12-14 06:22] LABS: HEMATOCRIT. 22.4 % (42.0-52.0); HEMOGLOBIN. 7.4 g/dL (14.0-18.0); INR 1.3; MEAN CORPUSCULAR VOLUME 90.5 fL (80.0-94.0); PLATELET 53 x1000/uL (130-400); PROTHROMBIN TIME 13.4 sec (9.6-11.0); RED BLOOD CELL COUNT 2.48 mill/uL (4.7-6.1); RED CELL DISTRIBUTION WIDTH 17.2 % (11.6-14.6)
[2021-12-14 06:44] LABS: CHLORIDE 111 mEq/L (98-107); PHOSPHORUS 3.1 mg/dL (2.5-4.9)
[2021-12-14] MEDS: ZINC SULFATE 220 MG ( 50 ) CAPSULE PO SCH ×2 (09:00→15:19)
[2021-12-14] MEDS: FLUCONAZOLE 100MG TABLET PO SCH ×2 (09:00→17:50)
[2021-12-14] MEDS: SENNOSIDES/DOCUSATE SOD 8.6/50MG TABLET PO SCH ×2 (09:00→17:50)
[2021-12-14] MEDS: ASCORBIC ACID 500 MG TABLET NG SCH ×2 (09:00→15:19)
[2021-12-14] MEDS ORDERED: IOHEXOL-300 50 ML BOTTLE IV ONE (09:02)
[2021-12-14] MEDS ORDERED: LIDOCAINE HCL/PF 1% 10 MG/ML 5ML VIAL ONE (09:02)
[2021-12-14] MEDS: PHYTONADIONE 10MG/ML AMP SUBCUT SCH (11:10)
[2021-12-14] MEDS: PANTOPRAZOLE SODIUM 40 MG/VIAL IV SCH ×2 (11:17→21:15)
[2021-12-14] MEDS: ACETYLCYSTEINE 100MG/ML 10% VIAL 4ML INH SCH ×2 (13:20→23:59)
[2021-12-14] MEDS: LEVOFLOXACIN 250MG TABLET PO SCH (16:43)
[2021-12-14 17:16] LABS: NUCLEATED RED BLOOD CELLS 1 /100 WBC
[2021-12-14 17:17] LABS: PLATELET ESTIMATE DECREASED
[2021-12-15] VITALS (15 sets, daily range): BP systolic 106–156; BP diastolic 60–81
[2021-12-15] MEDS: METOCLOPRAMIDE HCL 10MG/2ML VIAL IV SCH ×4 (00:46→17:48)
[2021-12-15 01:16] LABS: HEMATOCRIT. 23.9 % (42.0-52.0); HEMOGLOBIN. 7.9 g/dL (14.0-18.0); MEAN CORPUSCULAR HEMOGLOBIN 29.3 pg (28.0-32.0); MEAN CORPUSCULAR VOLUME 88.3 fL (80.0-94.0); MEAN PLATELET VOLUME 10.7 fl (7.4-10.4); PLATELET 61 x1000/uL (130-400); RED CELL DISTRIBUTION WIDTH 18.2 % (11.6-14.6)
[2021-12-15 01:19] LABS: CHLORIDE 111 mEq/L (98-107)
[2021-12-15 01:22] LABS: PLATELET ESTIMATE DECREASED
[2021-12-15 01:27] LABS: PHOSPHORUS 3.7 mg/dL (2.5-4.9)
[2021-12-15 01:34] LABS: INR 1.3; PROTHROMBIN TIME 13.5 sec (9.6-11.0)
[2021-12-15] MEDS: IPRATROPIUM/ALBUTEROL 0.5-3(2.5)MG/3ML NEB HHN SCH ×5 (03:55→21:29)
[2021-12-15] MEDS: MIDODRINE HCL 5MG TABLET PO SCH ×3 (05:45→22:30)
[2021-12-15 06:17] LABS: HEMATOCRIT. 24.1 % (42.0-52.0); HEMOGLOBIN. 8.1 g/dL (14.0-18.0); MEAN CORPUSCULAR HEMOGLOBIN 29.3 pg (28.0-32.0); MEAN CORPUSCULAR VOLUME 87.5 fL (80.0-94.0); MEAN PLATELET VOLUME 11.1 fl (7.4-10.4); PLATELET 66 x1000/uL (130-400); RED BLOOD CELL COUNT 2.75 mill/uL (4.7-6.1); RED CELL DISTRIBUTION WIDTH 18.5 % (11.6-14.6)
[2021-12-15] MEDS: DEXT 5%/0.2% NACL 1,000 ML IV SCH ×2 (06:29→17:48)
[2021-12-15] MEDS: ACETYLCYSTEINE 100MG/ML 10% VIAL 4ML INH SCH ×2 (07:40→15:53)
[2021-12-15] MEDS: PANTOPRAZOLE SODIUM 40 MG/VIAL IV SCH ×2 (08:08→22:29)
[2021-12-15] MEDS: ASCORBIC ACID 500 MG TABLET NG SCH (08:08)
[2021-12-15] MEDS: FLUCONAZOLE 100MG TABLET PO SCH (08:08)
[2021-12-15] MEDS: SENNOSIDES/DOCUSATE SOD 8.6/50MG TABLET PO SCH ×2 (08:08→17:48)
[2021-12-15] MEDS: ZINC SULFATE 220 MG ( 50 ) CAPSULE PO SCH (08:08)
[2021-12-15] MEDS: PHYTONADIONE 10MG/ML AMP SUBCUT SCH (08:09)
[2021-12-15 08:59] LABS: HEMATOCRIT. 28.6 % (42.0-52.0); HEMOGLOBIN. 9.6 g/dL (14.0-18.0); MEAN CORPUSCULAR HEMOGLOBIN 29.4 pg (28.0-32.0); MEAN CORPUSCULAR VOLUME 87.8 fL (80.0-94.0); MEAN PLATELET VOLUME 11.1 fl (7.4-10.4); PLATELET 66 x1000/uL (130-400); RED BLOOD CELL COUNT 3.26 mill/uL (4.7-6.1); RED CELL DISTRIBUTION WIDTH 17.7 % (11.6-14.6)
[2021-12-15 10:32] LABS: ATYPICAL LYMPHOCYTES 1
[2021-12-15 10:33] LABS: PLATELET ESTIMATE DECREASED
[2021-12-15 10:44] LABS: INR 1.2; PROTHROMBIN TIME 13.1 sec (9.6-11.0)
[2021-12-15] MEDS ORDERED: LIDOCAINE HCL 1% 20ML VIAL (Pyxis) INJ ONE (10:48)
[2021-12-15] MEDS ORDERED: CEFAZOLIN SODIUM 1000MG/VIAL ONE (10:48)
[2021-12-15] MEDS ORDERED: PROPOFOL 200MG/20ML VIAL IV ONE (10:48)
[2021-12-15] MEDS ORDERED: LABETALOL 5MG/ML SYR 20 MG/4 ML SYRINGE IV PRN (11:00)
[2021-12-15] MEDS ORDERED: HYDROMORPHONE HCL/PF 2MG/ML CPJ IV PRN (11:00)
[2021-12-15] MEDS ORDERED: MEPERIDINE HCL/PF 25MG/ML CPJ IV PRN (11:00)
[2021-12-15] MEDS ORDERED: ONDANSETRON HCL 4MG/2ML INJ IV PRN (11:00)
[2021-12-15] MEDS: LEVOFLOXACIN 250MG TABLET PO SCH (17:48)
[2021-12-15 20:32] LABS: PLATELET ESTIMATE DECREASED
[2021-12-16] VITALS (10 sets, daily range): BP systolic 96–122; BP diastolic 51–72
[2021-12-16] MEDS: METOCLOPRAMIDE HCL 10MG/2ML VIAL IV SCH ×5 (01:01→23:41)
[2021-12-16] MEDS: IPRATROPIUM/ALBUTEROL 0.5-3(2.5)MG/3ML NEB HHN SCH ×5 (01:02→20:48)
[2021-12-16] MEDS: ACETYLCYSTEINE 100MG/ML 10% VIAL 4ML INH SCH ×3 (01:02→16:58)
[2021-12-16] MEDS: MIDODRINE HCL 5MG TABLET PO SCH ×3 (06:17→20:39)
[2021-12-16] MEDS: GUAIFENESIN 200MG/10ML SUGAR FREE UDC PO PRN (09:02)
[2021-12-16] MEDS: ASCORBIC ACID 500 MG TABLET NG SCH (09:02)
[2021-12-16] MEDS: ZINC SULFATE 220 MG ( 50 ) CAPSULE PO SCH (09:02)
[2021-12-16] MEDS: PANTOPRAZOLE SODIUM 40 MG/VIAL IV SCH ×2 (09:02→20:38)
[2021-12-16] MEDS: FLUCONAZOLE 100MG TABLET PO SCH (09:02)
[2021-12-16] MEDS: DEXT 5%/0.2% NACL 1,000 ML IV SCH ×2 (09:03→20:38)
[2021-12-16] MEDS: SENNOSIDES/DOCUSATE SOD 8.6/50MG TABLET PO SCH ×2 (09:09→16:29)
[2021-12-16 13:20] LABS: HEMATOCRIT. 26.6 % (42.0-52.0); HEMOGLOBIN. 8.7 g/dL (14.0-18.0); MEAN CORPUSCULAR HEMOGLOBIN 29.1 pg (28.0-32.0); MEAN CORPUSCULAR VOLUME 89.4 fL (80.0-94.0); MEAN PLATELET VOLUME 11.3 fl (7.4-10.4); PLATELET 75 x1000/uL (130-400); RED BLOOD CELL COUNT 2.97 mill/uL (4.7-6.1); RED CELL DISTRIBUTION WIDTH 18.5 % (11.6-14.6)
[2021-12-16 13:27] LABS: CHLORIDE 113 mEq/L (98-107)
[2021-12-16] MEDS: LEVOFLOXACIN 250MG TABLET PO SCH (16:29)
[2021-12-17] VITALS: BP 97/61
[2021-12-17] MEDS: ACETYLCYSTEINE 100MG/ML 10% VIAL 4ML INH SCH ×4 (00:30→21:32)
[2021-12-17] MEDS: IPRATROPIUM/ALBUTEROL 0.5-3(2.5)MG/3ML NEB HHN SCH ×6 (00:30→21:32)
[2021-12-17 04:00] VITALS: BP 122/61
[2021-12-17] MEDS: MIDODRINE HCL 5MG TABLET PO SCH ×3 (05:05→20:46)
[2021-12-17] MEDS: METOCLOPRAMIDE HCL 10MG/2ML VIAL IV SCH ×3 (05:05→18:04)
[2021-12-17 07:28] LABS: HEMOGLOBIN. 8.9 g/dL (14.0-18.0); MEAN CORPUSCULAR HEMOGLOBIN 29.6 pg (28.0-32.0); MEAN CORPUSCULAR VOLUME 89.5 fL (80.0-94.0); MEAN PLATELET VOLUME 11.4 fl (7.4-10.4); PLATELET 84 x1000/uL (130-400); RED BLOOD CELL COUNT 3.02 mill/uL (4.7-6.1); RED CELL DISTRIBUTION WIDTH 18.1 % (11.6-14.6)
[2021-12-17 07:41] LABS: CHLORIDE 113 mEq/L (98-107)
[2021-12-17 07:50] LABS: PHOSPHORUS 3.1 mg/dL (2.5-4.9)
[2021-12-17 08:00] VITALS: BP 113/67
[2021-12-17 08:13] LABS: PLATELET ESTIMATE DECREASED
[2021-12-17] MEDS: ASCORBIC ACID 500 MG TABLET NG SCH (08:23)
[2021-12-17] MEDS: SENNOSIDES/DOCUSATE SOD 8.6/50MG TABLET PO SCH ×2 (08:23→16:19)
[2021-12-17] MEDS: PANTOPRAZOLE SODIUM 40 MG/VIAL IV SCH ×2 (08:23→20:46)
[2021-12-17] MEDS: ZINC SULFATE 220 MG ( 50 ) CAPSULE PO SCH (08:24)
[2021-12-17] MEDS: FLUCONAZOLE 100MG TABLET PO SCH (08:26)
[2021-12-17 12:00] VITALS: BP 110/64
[2021-12-17 14:03] LABS: PLATELET ESTIMATE DECREASED
[2021-12-17] MEDS: DEXT 5%/0.2% NACL 1,000 ML IV SCH (14:06)
[2021-12-17 16:00] VITALS: BP 123/63
[2021-12-17] MEDS: LEVOFLOXACIN 250MG TABLET PO SCH (16:19)
[2021-12-17 16:22] LABS: CLARITY URINE TURBID (CLEAR); COLOR URINE DARK YELLOW (YELLOW); KETONES URINE NEGATIVE (NEGATIVE); LEUKOCYTE ESTERASE URINE 3+ (NEGATIVE); NITRITE URINE POSITIVE (NEGATIVE); OCCULT BLOOD URINE 3+ (NEGATIVE); PROTEIN URINE 1+ (NEGATIVE); SPECIFIC GRAVITY URINE 1.011 (1.005-1.030); UROBILINOGEN URINE 0.2 E.U./dL (0.2-1.0)
[2021-12-17] MEDS: GUAIFENESIN 200MG/10ML SUGAR FREE UDC PO PRN (18:06)
[2021-12-17 20:00] VITALS: BP 108/59
[2021-12-17] MEDS: ENOXAPARIN 30MG/0.3ML SYR SUBCUT SCH (20:46)
[2021-12-18 00:05] VITALS: BP 131/73
[2021-12-18] MEDS: METOCLOPRAMIDE HCL 10MG/2ML VIAL IV SCH ×4 (00:09→18:02)
[2021-12-18] MEDS: DEXT 5%/0.2% NACL 1,000 ML IV SCH ×2 (00:10→13:21)
[2021-12-18] MEDS: IPRATROPIUM/ALBUTEROL 0.5-3(2.5)MG/3ML NEB HHN SCH ×5 (00:55→15:54)
[2021-12-18 04:00] VITALS: BP 122/67
[2021-12-18] MEDS: MIDODRINE HCL 5MG TABLET PO SCH ×3 (05:14→22:01)
[2021-12-18 06:34] LABS: HEMATOCRIT. 25.5 % (42.0-52.0); HEMOGLOBIN. 8.4 g/dL (14.0-18.0); MEAN CORPUSCULAR HEMOGLOBIN 29.3 pg (28.0-32.0); MEAN CORPUSCULAR VOLUME 88.3 fL (80.0-94.0); MEAN PLATELET VOLUME 11.4 fl (7.4-10.4); PLATELET 82 x1000/uL (130-400); RED BLOOD CELL COUNT 2.88 mill/uL (4.7-6.1); RED CELL DISTRIBUTION WIDTH 18.2 % (11.6-14.6)
[2021-12-18] MEDS: ACETYLCYSTEINE 100MG/ML 10% VIAL 4ML INH SCH ×3 (07:35→22:00)
[2021-12-18 08:00] VITALS: BP 124/65
[2021-12-18 08:39] LABS: CHLORIDE 110 mEq/L (98-107)
[2021-12-18] MEDS: ASCORBIC ACID 500 MG TABLET NG SCH (08:47)
[2021-12-18] MEDS: ZINC SULFATE 220 MG ( 50 ) CAPSULE PO SCH (08:47)
[2021-12-18] MEDS: FLUCONAZOLE 100MG TABLET PO SCH (08:47)
[2021-12-18] MEDS: SENNOSIDES/DOCUSATE SOD 8.6/50MG TABLET PO SCH ×2 (08:47→16:49)
[2021-12-18] MEDS: PANTOPRAZOLE SODIUM 40 MG/VIAL IV SCH ×2 (09:09→22:01)
[2021-12-18 12:00] VITALS: BP 135/76
[2021-12-18] MEDS ORDERED: POTASSIUM CHLORIDE INJ 40 MEQ in DEXT 5% WATER 250 ML IV ONE (12:15)
[2021-12-18] MEDS ORDERED: FLUCONAZOLE 100MG TABLET PO NR (12:30)
[2021-12-18] MEDS: KCL 20MEQ/100ML PREMIX 100 ML IV SCH ×2 (13:37→16:32)
[2021-12-18 14:12] LABS: PLATELET ESTIMATE SLIGHTLY DECREASED
[2021-12-18 16:00] VITALS: BP 117/66
[2021-12-18] MEDS: LEVOFLOXACIN 250MG TABLET PO SCH (16:49)
[2021-12-18 20:00] VITALS: BP 116/42
[2021-12-18] MEDS: ENOXAPARIN 30MG/0.3ML SYR SUBCUT SCH (22:01)
[2021-12-19] VITALS: BP 135/72
[2021-12-19] MEDS: METOCLOPRAMIDE HCL 10MG/2ML VIAL IV SCH ×3 (01:30→12:39)
[2021-12-19 04:00] VITALS: BP 132/74
[2021-12-19] MEDS: DEXT 5%/0.2% NACL 1,000 ML IV SCH (04:02)
[2021-12-19] MEDS: IPRATROPIUM/ALBUTEROL 0.5-3(2.5)MG/3ML NEB HHN SCH ×4 (04:57→17:10)
[2021-12-19] MEDS: MIDODRINE HCL 5MG TABLET PO SCH ×2 (05:20→17:48)
[2021-12-19 07:24] LABS: BASOPHILS % 0.3 % (0.0-2.0); EOSINOPHILS % 0.6 % (0.0-5.0); HEMATOCRIT. 26.4 % (42.0-52.0); HEMOGLOBIN. 8.7 g/dL (14.0-18.0); LYMPHOCYTES % 6.9 % (20.0-50.0); MEAN CORPUSCULAR HEMOGLOBIN 29.4 pg (28.0-32.0); MEAN CORPUSCULAR VOLUME 89.1 fL (80.0-94.0); MEAN PLATELET VOLUME 11.3 fl (7.4-10.4); MONOCYTES % 7.2 % (2.0-8.0); PLATELET 99 x1000/uL (130-400); RED BLOOD CELL COUNT 2.97 mill/uL (4.7-6.1); RED CELL DISTRIBUTION WIDTH 18.1 % (11.6-14.6)
[2021-12-19 08:00] VITALS: BP 132/69
[2021-12-19] MEDS: PANTOPRAZOLE SODIUM 40 MG/VIAL IV SCH (08:50)
[2021-12-19 08:55] LABS: CHLORIDE 109 mEq/L (98-107)
[2021-12-19] MEDS ORDERED: FLUCONAZOLE 100MG TABLET PO SCH (09:00)
[2021-12-19] MEDS: ZINC SULFATE 220 MG ( 50 ) CAPSULE PO SCH (09:15)
[2021-12-19] MEDS: SENNOSIDES/DOCUSATE SOD 8.6/50MG TABLET PO SCH (09:15)
[2021-12-19] MEDS: ASCORBIC ACID 500 MG TABLET NG SCH (09:15)
[2021-12-19] MEDS: ACETYLCYSTEINE 100MG/ML 10% VIAL 4ML INH SCH ×2 (09:30→17:11)
[2021-12-19] MEDS ORDERED: MUC103 INH (11:06)
[2021-12-19] MEDS ORDERED: FLUC100T PO (11:06)
[2021-12-19] MEDS ORDERED: TOPUD PO (11:06)
[2021-12-19] MEDS ORDERED: LOV30 SUBCUT (11:06)
[2021-12-19] MEDS ORDERED: POLY17PO3 PO (11:06)
[2021-12-19] MEDS ORDERED: LEVO250T43 PO (11:06)
[2021-12-19] MEDS ORDERED: IPRA3AMP9 HHN (11:06)
[2021-12-19] MEDS ORDERED: MOM PO (11:06)
[2021-12-19] MEDS ORDERED: DEXTL PO (11:06)
[2021-12-19] MEDS ORDERED: ONDA4TAB11 SL (11:06)
[2021-12-19] MEDS ORDERED: SENN1TAB35 PO (11:06)
[2021-12-19] MEDS ORDERED: ASCO500T20 NG (11:06)
[2021-12-19] MEDS ORDERED: PANT40TA51 PO (11:06)
[2021-12-19] MEDS ORDERED: ZINC220C2 PO (11:06)
[2021-12-19] MEDS ORDERED: MIDO5TAB4 PO (11:06)
[2021-12-19] MEDS ORDERED: METO5TAB2 PO (11:06)
[2021-12-19 12:00] VITALS: BP 118/75
[2021-12-19 13:57] VITALS: BP 129/70
[2021-12-19 16:00] VITALS: BP 120/71
[2021-12-19] MEDS: LEVOFLOXACIN 250MG TABLET PO SCH (17:48)
== END 2021-12-19 18:16 | DRG 871 ==
LOC: ER 12:12 → EDBEDREQSVC 14:49 → EDBEDREQ 14:54 → SUPCPDRO 15:06 → ENRESERV 15:26 → 7WST 18:36 → CANBEDREQ 11-26 07:59 → CVICU 11-29 01:53 → 3WST 12-05 19:34 → 5EST 12-07 13:11 → 7WST 12-16 12:45
PROVIDERS: ADMIT Internal Medicine; ATTEND Internal Medicine
PROC: 02HV33Z Insertion of Infusion Device into Superior Vena Cava, Percutaneous Approach (ICD-10-PCS; 2021-11-29)
PROC: B548ZZA Ultrasonography of Superior Vena Cava, Guidance (ICD-10-PCS; 2021-11-29)
PROC: 4A10X4Z Monitoring of Central Nervous Electrical Activity, External Approach (ICD-10-PCS; principal; 2021-12-02)
PROC: 30233N1 Transfusion of Nonautologous Red Blood Cells into Peripheral Vein, Percutaneous Approach (ICD-10-PCS; 2021-12-04)
PROC: 30233R1 Transfusion of Nonautologous Platelets into Peripheral Vein, Percutaneous Approach (ICD-10-PCS; 2021-12-04)
PROC: BF101ZZ Fluoroscopy of Bile Ducts using Low Osmolar Contrast (ICD-10-PCS; 2021-12-05)
PROC: 0F9930Z Drainage of Common Bile Duct with Drainage Device, Percutaneous Approach (ICD-10-PCS; 2021-12-05)
PROC: 30233K1 Transfusion of Nonautologous Frozen Plasma into Peripheral Vein, Percutaneous Approach (ICD-10-PCS; 2021-12-05)
PROC: 0F943ZZ Drainage of Gallbladder, Percutaneous Approach (ICD-10-PCS; 2021-12-08)
PROC: BF42ZZZ Ultrasonography of Gallbladder (ICD-10-PCS; 2021-12-08)
PROC: BF121ZZ Fluoroscopy of Gallbladder using Low Osmolar Contrast (ICD-10-PCS; 2021-12-08)
PROC: BF101ZZ Fluoroscopy of Bile Ducts using Low Osmolar Contrast (ICD-10-PCS; 2021-12-08)
PROC: 0FB93ZX Excision of Common Bile Duct, Percutaneous Approach, Diagnostic (ICD-10-PCS; 2021-12-08)
PROC: 0F9930Z Drainage of Common Bile Duct with Drainage Device, Percutaneous Approach (ICD-10-PCS; 2021-12-08)
PROC: 0F943ZZ Drainage of Gallbladder, Percutaneous Approach (ICD-10-PCS; 2021-12-14)
PROC: BF121ZZ Fluoroscopy of Gallbladder using Low Osmolar Contrast (ICD-10-PCS; 2021-12-14)
PROC: 0DB78ZX Excision of Stomach, Pylorus, Via Natural or Artificial Opening Endoscopic, Diagnostic (ICD-10-PCS; 2021-12-15)
PROC: 0DH63UZ Insertion of Feeding Device into Stomach, Percutaneous Approach (ICD-10-PCS; 2021-12-15)
DX: A41.9 Sepsis, unspecified organism (principal); E43 Unspecified severe protein-calorie malnutrition; R65.21 Severe sepsis with septic shock; N17.0 Acute kidney failure with tubular necrosis; G92.8 Other toxic encephalopathy; J96.01 Acute respiratory failure with hypoxia; J69.0 Pneumonitis due to inhalation of food and vomit; E87.2 Acidosis; N39.0 Urinary tract infection, site not specified; D61.818 Other pancytopenia; E87.0 Hyperosmolality and hypernatremia; C22.1 Intrahepatic bile duct carcinoma; I31.3 Pericardial effusion (noninflammatory); K80.60 Calculus of gallbladder and bile duct with cholecystitis, unspecified, without obstruction; D68.9 Coagulation defect, unspecified; F01.50 Vascular dementia, unspecified severity, without behavioral disturbance, psychotic disturbance, mood disturbance, and anxiety; E86.0 Dehydration; D69.6 Thrombocytopenia, unspecified; K80.20 Calculus of gallbladder without cholecystitis without obstruction; D64.9 Anemia, unspecified; E53.8 Deficiency of other specified B group vitamins; E83.52 Hypercalcemia; E80.6 Other disorders of bilirubin metabolism; E87.6 Hypokalemia; N40.0 Benign prostatic hyperplasia without lower urinary tract symptoms; L89.152 Pressure ulcer of sacral region, stage 2; Z20.822 Contact with and (suspected) exposure to COVID-19; K20.90 Esophagitis, unspecified without bleeding; K29.70 Gastritis, unspecified, without bleeding; E78.5 Hyperlipidemia, unspecified; E87.5 Hyperkalemia; E88.09 Other disorders of plasma-protein metabolism, not elsewhere classified; N18.9 Chronic kidney disease, unspecified; K74.60 Unspecified cirrhosis of liver; L89.95 Pressure ulcer of unspecified site, unstageable; R13.12 Dysphagia, oropharyngeal phase; I12.9 Hypertensive chronic kidney disease with stage 1 through stage 4 chronic kidney disease, or unspecified chronic kidney disease; Z68.25 Body mass index [BMI] 25.0-25.9, adult; Z85.05 Personal history of malignant neoplasm of liver; Z85.46 Personal history of malignant neoplasm of prostate; Z86.73 Personal history of transient ischemic attack (TIA), and cerebral infarction without residual deficits; R62.7 Adult failure to thrive; R13.0 Aphagia; R74.01 Elevation of levels of liver transaminase levels; B37.9 Candidiasis, unspecified; Z60.2 Problems related to living alone
CPT/HCPCS: 36415; 36573; 36600; 47490; 47531; 47534; 47536; 70551; 71045; 74176; 74181; 76700; 76705; 76770; 77002; 80048; 80053; 80061; 80076; 81003; 82043; 82105; 82140; 82248; 82330; 82375; 82378; 82550; 82570; 82607; 82728; 82746; 82805; 82962; 83036; 83540; 83550; 83605; 83735; 83935; 84100; 84145; 84153; 84300; 84439; 84443; 84484; 85014; 85018; 85025; 85049; 85384; 86301; 86705; 86709; 86803; 86850; 86900; 86920; 86927; 86945; 87070; 87077; 87186; 87340; 87426; 88305; 92610; 93005; 94640; 94667; 95816; 97161; 97164; 97166; 99285; C1725; C1729; C1760; C1766; C1769; C9113; J0690; J0692; J0696; J1100; J1650; J2185; J2370; J2405; J2704; J2765; J3370; J3430; J3475; J3480; J3490; J7030; J7040; J7060; J7070; J7608; P9016; P9017; P9034; Q9967; G0103